=== PATIENT | female | born 1950 | race Caucasian/White ===

== ENCOUNTER → 2025-01-29 | Outpatient (CLI) | payer BC ==
[~2025-01-29] MED LIST: ASPI81CH PO; Benicar Hct 401 EAC1 PO; CHOL10002 PO; LEVSOD100; LIVALO2 MG PO; METF500C; NAPR220; NIAC500ER PO; OLME20; Omega 3 1,0001 EACH PO
[2025-01-29 20:00] LABS: Bacterial Vaginosis PCR Negative (NEGATIVE); Candida Group, PCR NOT DETECTED (NOT DETECT); Candida glabrata-krusei, PCR NOT DETECTED (NOT DETECT)
== END | disposition home or self-care (01) ==
LOC: LAB SHORT 18:43
PROVIDERS: Physician Assistant
DX: N95.0 Postmenopausal bleeding (principal)
CPT/HCPCS: 81515